=== PATIENT | female | born 1940 | race Caucasian/White ===

== ENCOUNTER 2019-01-12 06:27 | Day surgery (SDC) | payer OTHER, MEDICARE ==
[2019-01-07 09:34] LABS: Basophils % 0.4 % (0-1.3); Hematocrit 38.8 % (36.0-45.0); Lymphocytes % 17.5 % (15.3-44.8); MPV 8.5 fL (7.6-11.3); RBC Red Blood Cell Count 4.21 M/uL (3.86-4.86)
[2019-01-07 09:39] LABS: Protime INR 0.96
[2019-01-07 09:51] LABS: Potassium 4.1 mmol/L (3.5-5.1)
--- OUTSIDE RECORDS SUMMARY | 2019-01-12 06:29 | XMS REPORT | Clinical Summary ---
:1940 Author Organization [facility] Address [address] [place] [address] Care Team Providers Name Role Phone Yoav Bonilla MD Primary Care Provider Allergies No Known Allergies Medications Medication Sig Dispensed Refills Start Date End Date Status DEXILANT 60 mg capsule 0 04/08/2017 Active PREMARIN 0.625 mg/gram 0 05/08/2017 Active vaginal cream gabapentin (NEURONTIN) 300 TK 1 C PO QID 0 03/10/2017 Active mg capsule levothyroxine (SYNTHROID, 0 05/19/2017 Active LEVOXYL) 50 mcg tablet omeprazole (PriLOSEC) 40 0 05/08/2017 Active MG capsule oxybutynin (DITROPAN) 5 MG 0 05/08/2017 Active tablet raloxifene (EVISTA) 60 mg 0 03/03/2017 Active tablet simvastatin (ZOCOR) 20 MG 0 03/03/2017 Active tablet Active Problems Not on file Family History Relation Name Status Comments Brother Father Mother Social History Tobacco Use Types Packs/Day Years Used Date Never Smoker Smokeless Tobacco: Never Used Alcohol Use Drinks/Week oz/Week Comments No Sex Assigned at Date Recorded Not on file Job Start Date Occupation Industry Not on file Not on file Not on file Travel History Travel Start Travel End No recent travel history available. 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
[2019-01-12] MEDS ORDERED: LIDOCAINE 1% MPF 30 ML VIAL ONE (06:48)
[2019-01-12] MEDS ORDERED: HEPA 1000U/500MLS 1,000 UNIT/500 ML BAG IV ONE (06:48)
[2019-01-12] MEDS ORDERED: NA CHLORIDE 0.9% 500 ML ONE (06:55)
[2019-01-12] MEDS ORDERED: FENTANYL CITR 100 MCG/2 ML ONE (07:23)
[2019-01-12] MEDS ORDERED: MIDAZOLAM HCL 2 MG/2 ML INJ ONE (07:23)
[2019-01-12] MEDS ORDERED: NA CHLORIDE 0.9% 0 ML ONE (07:23)
[2019-01-12] MEDS ORDERED: ATROPINE SULF 1 MG/10 ML SYR IV ONE (07:23)
[2019-01-12 09:34] VITALS: O2SAT 98
[2019-01-12 10:07] VITALS: BP 170/63; TEMP 98.1
--- NOTE | 2019-01-12 14:06 | OP ---
Surgeon: Julio Cesar Morrell MD Coin Machine Collector Supervisor: Chente Mejia. She was admitted to my service as an outpatient for a heart catheterization. Procedures: Left heart catheterization, selective coronary arteriogram. Indication: Chest pain and abnormal stress test. Patient is a 78-year-old woman with multiple cardiac risk factors, is a patient of Dr. Bonilla, had a p ositive stress test, scheduled for a heart catheterization today as an outpatient. She was prepped a nd draped in the routine sterile fashion. Given Versed for IV sedation. 6-Setswana sheath introduced in the right common femoral artery successfully. Angiography there was normal. Angio-Seal was used to close the case. Bailey catheter 6-Setswana left and right were used respectively to cannulate the left main and the right main. She had a normal right coronary artery. She was right dominant. Her circumflex was normal. Her LAD showed normal LAD itself, but she had a 70% stenosis in the first sherman gonal, 20% left main disease and 50% in the second diagonal. There were no complications. Blood Loss: 5 cc. Final Diagnosis: Moderate coronary artery disease. Plan: Increase her Zocor from 40 mg to 80 mg daily. Anesthesia: Total conscious sedation was 30 minutes. [place]ALYN Voice ID: [id number] Report ID: [id number]
== END 2019-01-12 10:03 | disposition home or self-care (01) ==
LOC: CCL 06:27
DX: I25.10 Atherosclerotic heart disease of native coronary artery without angina pectoris (principal); E78.5 Hyperlipidemia, unspecified; K21.9 Gastro-esophageal reflux disease without esophagitis; E03.9 Hypothyroidism, unspecified; G62.9 Polyneuropathy, unspecified
CPT/HCPCS: 85025; 80048; 36415; 85610; 85730; 93454; C1893; C1760; J2250; J3010; J0583

== ENCOUNTER 2022-04-13 13:49 | Emergency (ER) | payer OTHER, MEDICARE ==
--- OUTSIDE RECORDS SUMMARY | 2022-04-13 13:52 | XMS REPORT | Continuity of Care Document ---
:1940 Author Organization [facility] t Address [address] [place] [address] Care Team Providers Name Role Phone Yoav Bonilla MD Primary Care Physician NEELAM DUMONT Attending Clinician Unavailable NEELAM DUMONT Attending Clinician Unavailable NELLA QUEEN Attending Clinician Unavailable Nella Queen MD Attending Clinician Doctor Unassigned, [place] Attending Clinician Unavailable Payers Payer Name Policy Type Policy Number Effective Date Expiration Date S yahir MEDICARE PART A \T\ [id number] 2004 B 00:00:00 [facility] [id number] 2013 MEDICARE SUPPLEMENT 00:00:00 Problems Condition Condition Condition Status Onset Resolution Last Treating Co mments Source Name Details Category Date Date Treatment Clinician Date 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 0-22 ity of 00:00: [place] 00 Medical Branch Dyspareuni Dyspareuni Disease Active U nivers a a 7-18 ity of 00:00: [place] 00 Medical Branch 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 00:00: [place] atrophicus atrophicus 00 Me dical of the of the Branch vulva 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 3-03 ity of 00:00: [place] 00 Medical Branch Allergies, Adverse Reactions, Alerts Allergy Allergy Status Severity Reaction(s) Onset Inactive Treating Comm ents Source Name Type Date Date Clinician Zoledron Propensi Active Other - See U nivers ic ty to comments 11-04 ity of Acid-Man adverse 00:00: [place] [facility] [place] ZOLEDRON DRUG Active Other-Cmnt Univ ers IC 11-04 ity of ACID-MAN 00:00: [facility] 00 Medical [facility] Family History Family Member Diagnosis Comments Start Date Stop Date Source Natural brother [facility] Natural father [facility] mother [facility] Social History Social Habit Start Date Stop Date Quantity Comments Source Exposure to Not sure University SARS-CoV-2 [facility] (event) [place] Alcohol intake 2017-06-05 2017-06-05 [facility] 00:00:00 00:00:00 non-drinker of alcohol (finding) Tobacco use and 2017-06-05 2017-06-05 Smokeless tobacco [facility] exposure 00:00:00 00:00:00 non-user History of 1960-01-04 Cigarette Smoker Univers ty of tobacco use 00:00:00 [facility] Sex Assigned At [birth year] [facility] 00:00:00 00:00:00 Smoking Status Start Date Stop Date Source Never smoked tobacco [facility] Former smoker 2010-07-05 00:00:00 2010-07-05 00:00:00 Universi [facility] Medications Ordered Filled Start Stop Current Ordering Indication Dosage Frequency Signature Comments Components Source Medication Medication Date Date Medication? Clinician (SIG) Name Name conjugated Yes [id number] .5g Insert 0.5 Univers estrogens 1-13 g into ity of (PREMARIN) 00:00: vagina 2 Brigido as 0.625 00 (two) Medical mg/gram times per Branch vaginal week. cream conjugated Yes [id number] .5g Insert 0.5 Univers estrogens 1-13 g into ity of (PREMARIN) 00:00: vagina 2 Brig[place] as 0.625 00 (two) Medical mg/gram times per Branch vaginal week. cream conjugated Yes [id number] .5g Insert 0.5 Univers estrogens 1-13 g into ity of (PREMARIN) 00:00: vagina 2 Brig[place] as 0.625 00 (two) Medical mg/gram times per Branch vaginal week. cream conjugated Yes [id number] .5g Insert 0.5 Univers estrogens 1-13 g into ity of (PREMARIN) 00:00: vagina 2 [place] as 0.625 00 (two) Medical mg/gram times per Branch vaginal week. cream clobetasoL Yes [id number] Apply to Univers 0.05 % 1-11 area(s) ity of ointment 00:00: weekly. [place] [facility] clobetasoL Yes [id number] Apply to Univers 0.05 % 1-11 area(s) ity of ointment 00:00: weekly. [place] [facility] clobetasoL Yes [id number] Apply to Univers 0.05 % 1-11 area(s) ity of ointment 00:00: weekly. [place] [facility] clobetasoL Yes [id number] Apply to Univers 0.05 % 1-11 area(s) ity of ointment 00:00: weekly. [place] 00 Medical Branch MULTIVITAMI Yes Take by Uni vers NS W/C ORAL 1-11 mouth. ity of 13:17: [place] [address] Medical Branch [place]-3-DHA Yes Take by Uni vers -EPA-Fish 1-11 mouth ity of Oil (FISH 13:17: daily. [place] OIL) 1,000 53 Medical (120-180) Branch mg Cap CALCIUM Yes 1200mg Take 1,200 Un lalo CITRATE/VIT 1-11 mg by ity of BUSTOS D3 13:17: mouth [place] (CITRACAL + 53 daily. Medica l D ORAL) Branch biotin Yes 1{each} Take 1 Univer s 1,000 mcg 1-11 Each by ity of Chew 13:17: mouth [place] 53 daily. Medical Branch propylene Yes Place in Univ ers glycol 1-11 each eye. ity of (SYSTANE 13:17: [place] COMPLETE) 53 Medical 0.6 % Drop Branch famotidine Yes 40mg Take 40 mg U nivers 40 mg 1-11 by mouth ity of tablet 13:17: daily. [place] [address] Medical Branch MULTIVITAMI Yes Take by Uni vers NS W/C ORAL 1-11 mouth. ity of 13:17: [place] [address] Medical Branch [place]-3-DHA Yes Take by Uni vers -EPA-Fish 1-11 mouth ity of Oil (FISH 13:17: daily. [place] OIL) 1,000 53 Medical (120-180) Branch mg Cap CALCIUM 0 Yes 1200mg Take 1,200 Un lalo CITRATE/VIT 1-11 mg by ity of BUSTOS D3 13:17: mouth [place] (CITRACAL + 53 daily. Medica l D ORAL) Branch biotin 0 Yes 1{each} Take 1 Univer s 1,000 mcg 1-11 Each by ity of Chew 13:17: mouth [place] 53 daily. Medical Branch propylene [address] in Univ ers glycol 1-11 each eye. ity of (SYSTANE 13:17: [place] COMPLETE) 53 Medical 0.6 % Drop Branch famotidine 0 Yes 40mg Take 40 mg U nivers 40 mg 1-11 by mouth ity of tablet 13:17: daily. [place] [address] Medical Branch MULTIVITAMI Yes Take by Uni vers NS W/C ORAL 1-11 mouth. ity of 13:17: [place] [address] Medical Branch [place]-3-DHA Yes Take by Uni vers -EPA-Fish -11 mouth ity of Oil (FISH 13:17: daily. [place] OIL) 1,000 53 Medical (120-180) Branch mg Cap CALCIUM 0 Yes 1200mg Take 1,200 Un lalo CITRATE/VIT 1-11 mg by ity of BUSTOS D3 13:17: mouth [place] (CITRACAL + 53 daily. Medica l D ORAL) Branch biotin 0 Yes 1{each} Take 1 Univer s 1,000 mcg 1-11 Each by ity of Chew 13:17: mouth [place] 53 daily. Medical Branch propylene [address] in Univ ers glycol 1-11 each eye. ity of (SYSTANE 13:17: [place] COMPLETE) 53 Medical 0.6 % Drop Branch famotidine 0 Yes 40mg Take 40 mg U nivers 40 mg 1-11 by mouth ity of tablet 13:17: daily. [place] 53 Medical Branch MULTIVITAMI 0 Yes Take by Uni vers NS W/C ORAL 1-11 mouth. ity of 13:17: [place] 53 Medical Branch [place]-3-DHA Yes Take by Uni vers -EPA-Fish 1-11 mouth ity of Oil (FISH 13:17: daily. [place] OIL) 1,000 53 Medical (120-180) Branch mg Cap CALCIUM Yes 1200mg Take 1,200 Un lalo CITRATE/VIT 1-11 mg by ity of BUSTOS D3 13:17: mouth [place] (CITRACAL + 53 daily. Medica l D ORAL) Branch biotin Yes 1{each} Take 1 Univer s 1,000 mcg 1-11 Each by ity of Chew 13:17: mouth [place] 53 daily. Medical Branch propylene Yes Place in Univ ers glycol 1-11 each eye. ity of (SYSTANE 13:17: [place] COMPLETE) 53 Medical 0.6 % Drop Branch famotidine Yes 40mg Take 40 mg U nivers 40 mg -11 by mouth ity of tablet 13:17: daily. [place] 53 Medical Branch PROLIA 60 Yes Univers mg/mL 1-01 ity of injection 00:00: [facility] PROLIA 60 0 Yes Univers mg/mL -01 ity of injection 00:00: [place] [facility] PROLIA 60 0 Yes Univers mg/mL -01 ity of injection 00:00: [place] [facility] PROLIA 60 0 Yes Univers mg/mL 1-01 ity of injection 00:00: [facility] simvastatin 2020- Yes TK 1 T PO U nivers 80 mg 1-10 QD ity of tablet 00:00: [facility] simvastatin 2020- Yes TK 1 T PO U nivers 80 mg 1-10 QD ity of tablet 00:00: [place] [facility] simvastatin 2020- Yes TK 1 T PO U nivers 80 mg 1-10 QD ity of tablet 00:00: [place] [facility] simvastatin 2020- Yes TK 1 T PO U nivers 80 mg 1-10 QD ity of tablet 00:00: Medical Branch levothyroxi Yes 50ug Take 50 Uni vers ne 50 mcg 1-15 mcg by ity of tablet 00:00: mouth 00 daily. Medical Branch levothyroxi Yes 50ug Take 50 Uni vers ne 50 mcg 1-15 mcg by ity of tablet 00:00: mouth [place] 00 daily. Medical Branch levothyroxi Yes Method i ne 1-15 st (SYNTHROID, 00:00: Hospit a LEVOXYL) 50 00 l mcg tablet levothyroxi Yes Method i ne 1-15 st (SYNTHROID, 00:00: Hospit a LEVOXYL) 50 00 l mcg tablet levothyroxi Yes 50ug Take 50 Uni vers ne 50 mcg 1-15 mcg by ity of tablet 00:00: mouth [place] 00 daily. Medical Branch levothyroxi Yes 50ug Take 50 Uni vers ne 50 mcg 1-15 mcg by ity of tablet 00:00: mouth [place] 00 daily. Medical Branch PREMARIN Yes [facility] 0.625 1-04 st mg/gram 00:00: Hospita vaginal 00 l cream omeprazole Yes [facility] (PriLOSEC) 1-04 st 40 MG 00:00: Hospita capsule 00 l oxybutynin Yes [facility] (DITROPAN) 1-04 st 5 MG tablet 00:00: Hospit a 00 l omeprazole Yes [facility] (PriLOSEC) 1-04 st 40 MG 00:00: Hospita capsule 00 l oxybutynin 0 Yes [facility] (DITROPAN) 1-04 st 5 MG tablet 00:00: Hospit a 00 l PREMARIN 0 Yes [facility] 0.625 1-04 st mg/gram 00:00: Hospita vaginal 00 l cream DEXILANT 60 2016-05 Yes Method i mg capsule 2-05 st 00:00: Hospita 00 l DEXILANT 60 2016-05 Yes Method i mg capsule 2-05 st 00:00: Hospita 00 l gabapentin 2016-05 Yes TK 1 C PO Me thodi (NEURONTIN) 1-[address] 300 mg 00:00: Hospita capsule 00 l gabapentin 2016-05 Yes 300mg Take 300 Un lalo 300 mg 1-06 mg by ity of capsule 00:00: mouth 3 00 (three) Medical times Branch daily. gabapentin 2016-05 Yes 300mg Take 300 Un lalo 300 mg 1-06 mg by ity of capsule 00:00: mouth 3 00 (three) Medical times Branch daily. gabapentin 2016-05 Yes 300mg Take 300 Un lalo 300 mg 1-06 mg by ity of capsule 00:00: mouth 3 [place] (three) Medical times Branch daily. gabapentin 2016-05 Yes 300mg Take 300 Un lalo 300 mg 1-06 mg by ity of capsule 00:00: mouth 3 [place] 00 (three) Medical times Branch daily. gabapentin 2016-05 Yes TK 1 C PO Me thodi (NEURONTIN) 1-[address] 300 mg 00:00: Hospita capsule 00 l raloxifene 2016-05 Yes Methodi (EVISTA) 60 0-30 st mg tablet 00:00: Hospita 00 l simvastatin 2016-05 Yes Method i (ZOCOR) 20 0-30 st MG tablet 00:00: Hospita 00 l raloxifene 2016-05 Yes [facility] (EVISTA) 60 0-30 st mg tablet 00:00: Hospita 00 l simvastatin 2016-05 Yes Method i (ZOCOR) 20 0-30 st MG tablet 00:00: Hospita 00 l Immunizations Ordered Filled Immunization Date Status Comments [facility] e Immunization Name Name SARS-COV-2 COVID-19 2021-02-21 Completed Unive rsity of MODERNA VACCINE 00:00:00 [facility] Influenza High Dose 2021-02-21 Completed Unive rsity of 00:00:00 [facility] SARS-COV-2 COVID-19 2021-02-21 Completed Unive rsity of MODERNA VACCINE 00:00:00 [facility] Influenza High Dose 2021-02-21 Completed Unive rsity of 00:00:00 [facility] SARS-COV-2 COVID-19 2021-02-21 Completed Unive rsity of MODERNA VACCINE 00:00:00 [facility] Influenza High Dose 2021-02-21 Completed Unive rsity of 00:00:00 [facility] SARS-COV-2 COVID-19 2021-02-21 Completed Unive rsity of MODERNA VACCINE 00:00:00 [facility] Influenza High Dose 2021-02-21 Completed Unive rsity of 00:00:00 [facility] SARS-COV-2 COVID-19 2020-08-22 Completed Unive rsity of MODERNA VACCINE 00:00:00 [facility] SARS-COV-2 COVID-19 2020-08-22 Completed Unive rsity of MODERNA VACCINE 00:00:00 [facility] SARS-COV-2 COVID-19 2020-08-22 Completed Unive rsity of MODERNA VACCINE 00:00:00 [facility] SARS-COV-2 COVID-19 2020-08-22 Completed Unive rsity of MODERNA VACCINE 00:00:00 [facility] SARS-COV-2 COVID-19 2020-07-19 Completed Unive rsity of MODERNA VACCINE 00:00:00 [facility] SARS-COV-2 COVID-19 2020-07-19 Completed Unive rsity of MODERNA VACCINE 00:00:00 [facility] SARS-COV-2 COVID-19 2020-07-19 Completed Unive rsity of MODERNA VACCINE 00:00:00 [facility] SARS-COV-2 COVID-19 2020-07-19 Completed Unive rsity of MODERNA VACCINE 00:00:00 [facility] Influenza Virus 2020-01-10 Completed Universit y of Vaccine 00:00:00 [facility] Influenza Virus 2020-01-10 Completed Universit y of Vaccine 00:00:00 [facility] Influenza Virus 2020-01-10 Completed Universit y of Vaccine 00:00:00 [facility] Influenza Virus 2020-01-10 Completed Universit y of Vaccine 00:00:00 [facility] Vital Signs Vital Name Observation Time Observation Value Comments Source Systolic blood 2021-06-18 19:43:00 168 mm[Hg] Univer sity of pressure [facility] Diastolic blood 2021-06-18 19:43:00 76 mm[Hg] Unive rsity of pressure [facility] Heart rate 2021-06-18 19:42:00 93 /min [facility] Body temperature 2021-06-18 19:42:00 36.67 Lashanda Univ ersity [facility] Respiratory rate 2021-06-18 19:42:00 18 /min Univ ersity [facility] Body height 2021-06-18 19:42:00 167.6 cm [facility] Body weight 2021-06-18 19:42:00 62.279 kg [facility] BMI 2021-06-18 19:42:00 22.16 kg/m2 [facility] Procedures Procedure Date / Time Performed Performing Clinician Sour e EXTERNAL PROVIDER 2021-10-11 05:01:00 Doctor Unassigned, No Univ [facility] RECORDS Name Medical Branch EXTERNAL MAMMOGRAM 2021-10-11 00:00:00 Nella Queen [facility] Plan of Care Planned Activity Planned Date Details Comments Source Future Scheduled 2022-03-09 HEPATITIS B VACCINES [facility] Test 23:28:34 (1 of 3 - 3-dose series) [code = HEPATITIS B VACCINES (1 of 3 - 3-dose series)] Future Scheduled 2022-03-09 COVID-19 VACCINE (#1) [facility] Hospital Test 23:28:34 [code = COVID-19 VACCINE (#1)] Future Scheduled 2022-03-09 SHINGLES VACCINES (1 [facility] Test 23:28:34 of 2) [code = SHINGLES VACCINES (1 of 2)] Future Scheduled 2022-03-09 65+ PNEUMOCOCCAL Methodi Hospital Test 23:28:34 VACCINE (1 - PCV) [code = 65+ PNEUMOCOCCAL VACCINE (1 - PCV)] Future Scheduled 2022-03-09 INFLUENZA VACCINE Method is Hospital Test 23:28:34 [code = INFLUENZA VACCINE] Future Scheduled 2021-04-19 COVID-19 VACCINE (1) [facility] Test 03:07:09 [code = COVID-19 VACCINE (1)] Future Scheduled 2021-04-19 SHINGLES [facility]ACCINES (#1) [facility] Test 03:07:09 [code = SHINGLES VACCINES (#1)] Future Scheduled 2021-04-19 65+ PNEUMOCOCCAL [facility] Test 03:07:09 VACCINE (1 of 1 - PPSV23) [code = 65+ PNEUMOCOCCAL VACCINE (1 of 1 - PPSV23)] Future Scheduled 2021-04-19 INFLUENZA VACCINE Method is Hospital Test 03:07:09 [code = INFLUENZA VACCINE] Encounters Start End Encounter Admission Attending Care Care Encounter Source Date/Time Date/Time Type Type Clinicians Facility Department ID 2022-05-21 2022-05-21 Outpatient R NEELAM DUMONT [facility] B [id number] Univers 10:30:00 10:30:00 NEELAM DUMONT ity [facility] 2022-05-21 2022-05-21 Outpatient R NELLA QUEEN [facility] [id number] Univers 10:00:00 10:00:00 ity of [facility] 2022-05-21 2022-05-21 Outpatient R NELLA QUEEN [facility] [id number] Univers 10:00:00 10:00:00 ity [facility] 2022-05-21 2022-05-21 Outpatient R NELLA QUEEN [facility] [id number] Univers 10:00:00 10:00:00 ity [facility] 2021-10-25 2021-10-25 Abstract Nella Queen [facility] [id number] Univers 00:00:00 00:00:00 ASHLEY [id number] it y of [id number] [place] [id number] [address] 2021-10-25 2021-10-25 Telephone Nella Queen [facility] [id number] Univers 00:00:00 00:00:00 ASHLEY [id number] it y [id number] [id number] [address] 2021-10-11 2021-10-11 Orders Doctor BIJAL [id number] Univers 00:00:00 00:00:00 Only Unassigned, LISA [id number] [place] [facility] [id number] [place] [id number] [place] [address] Branch 2021-06-18 2021-06-18 Outpatient R NELLA QUEEN [facility] [id number] Univers 13:30:00 13:53:26 ity [facility] 2021-06-18 2021-06-18 Office Nella Queen [id number] Univers 13:30:00 13:53:26 Visit ASHLEY [id number] it y [id number] [id number] [address] 2021-06-01 2021-06-01 Outpatient R NELLA QUEEN [facility] [id number] Univers 13:30:00 14:41:57 ity of [facility] 2021-06-01 2021-06-01 Office Nella Queen [facility] [id number] Univers 13:30:00 14:00:00 [facility] [id number] [facility] [id number] [id number] Sc dical [address] 2021-06-01 2021-06-01 Outpatient R NELLA QUEEN [facility] [id number] Univers 13:30:00 13:30:00 ity of [facility] 2021-06-01 2021-06-01 Orders Doctor BIJAL [id number] Univers 00:00:00 00:00:00 Only Unassigned, LISA [id number] ity of [place] [facility] [id number] [place] [id number] [address] 2021-05-15 2021-05-15 Office Nella Queen [facility] [id number] Univers 10:00:00 10:44:33 Visit ASHLEY [id number] it y [id number] [id number] [address] 2021-05-15 2021-05-15 Outpatient R NELLA QUEEN [facility] [id number] Univers 10:00:00 10:44:33 ity [facility] 2021-05-08 2021-05-08 Orders Doctor BIJAL [id number] Univers 00:00:00 00:00:00 Only Unassigned, LISA [id number] ity of [place] [facility] [id number] [place] [id number] [address] 2020-05-15 2020-05-15 NELLA Colon [facility] [id number] [facility] 13:00:00 13:00:00 [facility] Results This patient has no known results.
--- NOTE | 2022-04-13 15:36 | RAD REPORT ---
EXAM DESCRIPTION: CT - Head Brain Wo Cont - 04/13/2022 3:23 pm CLINICAL HISTORY: headache, blurry vision, diziness, high BP COMPARISON: None TECHNIQUE: All CT scans are performed using dose optimization technique as appropriate and may inclu de automated exposure control or mA/KV adjustment according to patient size. FINDINGS: No intracranial hemorrhage, hydrocephalus or extra-axial fluid collection.No areas of brai n edema or evidence of midline shift. Mild to moderate chronic small vessel ischemic changes. The paranasal sinuses and mastoids are clear. The calvarium is intact. IMPRESSION: No acute intracranial abnormality.
[2022-04-13 17:40] LABS: Absolute Lymphocytes (CBC) 0.7 K/uL (0.7-4.9); Hematocrit 37.7 % (36.0-45.0); Lymphocytes % 11.7 % (15.3-44.8); MCV 90.7 fL (80-100); MPV 7.6 fL (7.6-11.3); RBC Red Blood Cell Count 4.16 M/uL (3.86-4.86)
[2022-04-13 18:01] LABS: Albumin 3.8 g/dL (3.4-5.0); Bilirubin Total 1.2 mg/dL (0.2-1.0); Potassium 3.9 mmol/L (3.5-5.1); Protein, Total 7.3 g/dL (6.4-8.2); Troponin High Sensitivity 13.5 pg/mL (<58.9)
--- NOTE | 2022-04-13 18:08 | ER ---
Nurse's Notes [facility] Name: Cara Lim Age: 81 yrs Sex: Female : 1940 Arrival Date: 04/13/2022 Time: 13:51 Bed 16 Private MD: Yoav Bonilla V Diagnosis: Elevated blood-pressure reading, without diagnosis of hypertension Presentation: 04/13 15:04 Chief complaint: Chief complaint: Patient states: headache, blurry vision, dizziness iw started this morning, and noticed her BP was high. 15:05 Coronavirus screen: At this time, the client does not indicate any symptoms associated iw with coronavirus-19. Ebola Screen: Patient negative for fever greater than or equal to 101.5 degrees Fahrenheit, and additional compatible Ebola Virus Disease symptoms Patient denies exposure to infectious person. Patient denies travel to an Ebola-affected area in the 21 days before illness onset. No symptoms or risks identified at this time. Initial Sepsis Screen: Does the patient meet any 2 criteria? No. Patient's initial sepsis screen is negative. Does the patient have a suspected source of infection? No. Patient's initial sepsis screen is negative. Risk Assessment: Do you want to hurt yourself or someone else? Patient reports no desire to harm self or others. Onset of symptoms was April 13, 2022. 15:05 Method Of Arrival: Wheelchair iw 15:05 Acuity: PRINCESS 2 iw Historical: - Allergies: 18:21 No Known Allergies; eh3 - Immunization history:: Adult Immunizations up to date. - Family history:: not pertinent. - Social history:: Smoking status: Patient denies any tobacco usage or history of. Screenin:30 Abuse screen: Denies threats or abuse. Denies injuries from another. Nutritional eh3 screening: No deficits noted. Tuberculosis screening: No symptoms or risk factors identified. Fall Risk None identified. Assessment: 16:30 General: Appears in no apparent distress. comfortable, Behavior is calm, cooperative, eh3 appropriate for age. Pain: Denies pain. Neuro: Level of Consciousness is awake, alert, obeys commands, Oriented to person, place, time, situation. Cardiovascular: Capillary refill < 3 seconds Patient's skin is warm and dry. Respiratory: Airway is patent Respiratory effort is even, unlabored, Respiratory pattern is regular, symmetrical. GI: No signs and/or symptoms were reported involving the gastrointestinal system. Abdomen is flat, non-distended. : No signs and/or symptoms were reported regarding the genitourinary system. EENT: No signs and/or symptoms were reported regarding the EENT system. Derm: No signs and/or symptoms reported regarding the dermatologic system. Musculoskeletal: No signs and/or symptoms reported regarding the musculoskeletal system. Circulation, motion, and sensation intact. Range of motion: intact in all extremities. 17:30 Reassessment: Patient appears in no apparent distress at this time. Patient and/or eh3 family updated on plan of care and expected duration. Pain level reassessed. Patient is alert, oriented x 3, equal unlabored respirations, skin warm/dry/pink. Vital Signs: 14:54 BP 202 / 79 RA; Pulse 91; Resp 16; Temp 97.9(O); Pulse Ox 98% on R/A; Weight 61.23 kg; zm Height 5 ft. 6 in. (167.64 cm); Pain 0/10; 16:30 BP 162 / 85 RA; Pulse 79; Resp 14; Pulse Ox 99% on R/A; eh3 16:30 BP 199 / 71 LA; Pulse 79; eh3 17:30 BP 200 / 69 LA; Pulse 75; Resp 12; Pulse Ox 100% on R/A; eh3 14:54 Body Mass Index 21.79 (61.23 kg, 167.64 cm) ED Course: 13:51 Patient arrived in ED. am2 13:51 Yoav Bonilla MD is Private Physician. am2 15:06 Triage completed. iw 15:25 CT Head Brain wo Cont In Process Unspecified. EDMS 15:45 Ricci Fernández MD is Attending Physician. rt 16:25 Eileen Rangel, DINA is Primary Nurse. eh3 16:30 Missed attempt(s): 22 gauge in left antecubital area. Bleeding controlled, band aid eh3 applied, catheter tip intact. 16:30 Patient has correct armband on for positive identification. Bed in low position. Call eh3 light in reach. Side rails up X2. Adult w/ patient. Client placed on continuous cardiac and pulse oximetry monitoring. NIBP monitoring applied. Door closed. Noise minimized. Warm blanket given. 16:30 Arm band placed on left wrist. eh3 17:00 Inserted saline lock: 22 gauge in right antecubital area, using aseptic technique. eh3 Blood collected. 18:22 No provider procedures requiring assistance completed. IV discontinued, intact, eh3 bleeding controlled, No redness/swelling at site. Pressure dressing applied. Administered Medications: 18:13 Drug: amLODIPine 10 mg Route: PO; eh3 18:21 Follow up: Response: Medication administered at discharge. eh3 Medication: 18:22 VIS not applicable for this client. 3 Outcome: 18:07 Discharge ordered by . rt 18:22 Discharged to home ambulatory, with family. eh3 18:22 Condition: stable 18:22 Discharge instructions given to patient, family, Instructed on discharge instructions, follow up and referral plans. medication usage, Demonstrated understanding of instructions, follow-up care, medications, Prescriptions given X 1. 18:23 Patient left the ED. 3 Signatures: Dispatcher [employer] EDMS Fara Holden RN RN iw Zoe Schrader Erin, RN RN 3 Frances Rivas Ryan, MD MD rt Corrections: (The following items were deleted from the chart) 15:06 15:04 Chief complaint: iw iw
--- NOTE | 2022-04-13 18:08 | EDPHYS ---
Physician Documentation [facility] Name: Cara Lim Age: 81 yrs Sex: Female : 1940 Arrival Date: 04/13/2022 Time: 13:51 Bed 16 Private MD: Yoav Bonilla V ED Physician Ricci Fernández HPI: 04/13 17:19 This 81 yrs old Female presents to ER via Wheelchair with complaints of High Blood rt Pressure. 17:19 The patient has elevated blood pressure and discovered this at home, with a home rt device. Onset: The symptoms/episode began/occurred today. Modifying factors: The symptoms are aggravated by nothing, The symptoms are alleviated by nothing. Associated signs and symptoms: Pertinent positives: blurred vision, Pertinent negatives: chest pain, dizziness, headache. Severity of symptoms: At its worst the blood pressure was 180's. Presents to the ED with hypertension at home. Patient states that she had a somewhat blurred vision, worse than baseline. The patient denies any chest pain, shortness of breath. There is note states that the patient may, however, she denies this to me. She states that her blood pressure was normal at her PCPs office last week, states that this is new for her. Denies other acute complaints at this time, symptoms are moderate severity, no other aggravating or alleviating factors.. Historical: - Allergies: 18:21 No Known Allergies; eh3 - Immunization history:: Adult Immunizations up to date. - Family history:: not pertinent. - Social history:: Smoking status: Patient denies any tobacco usage or history of. ROS: 17:19 Constitutional: Negative for fever, chills, and weight loss, ENT: Negative for injury, rt pain, and discharge, Neck: Negative for injury, pain, and swelling, Cardiovascular: Negative for chest pain, palpitations, and edema, Respiratory: Negative for shortness of breath, cough, wheezing, and pleuritic chest pain, Abdomen/GI: Negative for abdominal pain, nausea, vomiting, diarrhea, and constipation, Back: Negative for injury and pain, MS/Extremity: Negative for injury and deformity, Skin: Negative for injury, rash, and discoloration, Neuro: Negative for headache, weakness, numbness, tingling, and seizure, Psych: Negative for depression, anxiety, suicide ideation, homicidal ideation, and hallucinations. 17:19 Eyes: Positive for blurry vision, Negative for photophobia. Exam: 17:19 Constitutional: This is a well developed, well nourished patient who is awake, alert, rt and in no acute distress. Head/Face: Normocephalic, atraumatic. Eyes: Pupils equal round and reactive to light, extra-ocular motions intact. Lids and lashes normal. Conjunctiva and sclera are non-icteric and not injected. Cornea within normal limits. Periorbital areas with no swelling, redness, or edema. ENT: Nares patent. No nasal discharge, no septal abnormalities noted. Tympanic membranes are normal and external auditory canals are clear. Oropharynx with no redness, swelling, or masses, exudates, or evidence of obstruction, uvula midline. Mucous membranes moist. Neck: Trachea midline, no thyromegaly or masses palpated, and no cervical lymphadenopathy. Supple, full range of motion without nuchal rigidity, or vertebral point tenderness. No Meningismus. Chest/axilla: Normal chest wall appearance and motion. Nontender with no deformity. No lesions are appreciated. Cardiovascular: Regular rate and rhythm with a normal S1 and S2. No gallops, murmurs, or rubs. Normal PMI, no JVD. No pulse deficits. Respiratory: Lungs have equal breath sounds bilaterally, clear to auscultation and percussion. No rales, rhonchi or wheezes noted. No increased work of breathing, no retractions or nasal flaring. Abdomen/GI: Soft, non-tender, with normal bowel sounds. No distension or tympany. No guarding or rebound. No evidence of tenderness throughout. Skin: Warm, dry with normal turgor. Normal color with no rashes, no lesions, and no evidence of cellulitis. MS/ Extremity: Pulses equal, no cyanosis. Neurovascular intact. Full, normal range of motion. Neuro: Awake and alert, GCS 15, oriented to person, place, time, and situation. Cranial nerves II-XII grossly intact. Motor strength 5/5 in all extremities. Sensory grossly intact. Cerebellar exam normal. Normal gait. Psych: Awake, alert, with orientation to person, place and time. Behavior, mood, and affect are within normal limits. 17:19 ECG was reviewed by the Attending Physician. Vital Signs: 14:54 BP 202 / 79 RA; Pulse 91; Resp 16; Temp 97.9(O); Pulse Ox 98% on R/A; Weight 61.23 kg; zm Height 5 ft. 6 in. (167.64 cm); Pain 0/10; 16:30 BP 162 / 85 RA; Pulse 79; Resp 14; Pulse Ox 99% on R/A; eh3 16:30 BP 199 / 71 LA; Pulse 79; eh3 17:30 BP 200 / 69 LA; Pulse 75; Resp 12; Pulse Ox 100% on R/A; eh3 14:54 Body Mass Index 21.79 (61.23 kg, 167.64 cm) zm MDM: 15:46 Patient medically screened. rt 18:18 Differential diagnosis: hypertensive crisis, Malignant HTN, CVA, intracerebral rt hemorrhage. Data reviewed: vital signs, nurses notes, lab test result(s), EKG, radiologic studies. ED course: Presents to the ED with hypertension that is new for her. She is recently asymptomatic except for some mild blurred vision. She denies any chest pain to me. The patient has no acute ischemic changes on the EKG, negative troponin, unremarkable CT scan of the head as well as normal creatinine. It is noted the patient does have a blood pressure discrepancy between her 2 arms, right arm being less than the left arm. This is less consistent with a aortic dissection, and she has no symptoms that would be attributable to an acute aortic pathology. For this reason, do not believe that she requires angiography at this time. Patient is stable for outpatient care, will have blood pressure recheck in primary care's office, will prescribe medication should she have elevated blood pressures at home. Patient verbalized understanding is comfortable with this plan. Return precautions were discussed with patient.. 04/13 15:56 Order name: CBC with Diff; Complete Time: 17:47 rt 04/13 15:56 Order name: CMP; Complete Time: 18:02 rt 04/13 15:07 Order name: CT Head Brain wo Cont; Complete Time: 15:47 iw 04/13 15:56 Order name: Troponin High Sensitivity; Complete Time: 18:02 rt 04/13 15:56 Order name: EKG; Complete Time: 15:57 rt 04/13 15:56 Order name: EKG - Nurse/Tech; Complete Time: 16:59 rt EC:19 Rate is 75 beats/min. Rhythm is regular, Normal Sinus Rhythm with Right bundle branch rt block. QRS interval is normal. QT interval is normal. No ST changes noted. Interpreted by me. Administered Medications: 18:13 Drug: amLODIPine 10 mg Route: PO; eh3 18:21 Follow up: Response: Medication administered at discharge. 3 Disposition Summary: 04/13/22 18:07 Discharge Ordered Location: Home rt Problem: new rt Symptoms: have improved rt Condition: Stable rt Diagnosis - Elevated blood-pressure reading, without diagnosis of hypertension rt Followup: rt - With: Private Physician - When: 2 - 3 days - Reason: Discharge Instructions: - Discharge Summary Sheet rt - Hypertension, Adult, [id number] rt Forms: - Medication Reconciliation Form rt - Thank You Letter rt - Antibiotic Education rt - Prescription Opioid Use rt Prescriptions: - Norvasc 10 mg Oral Tablet - take 1 tablet by ORAL route once daily; 30 tablet; Refills: 0, Product rt Selection Permitted Signatures: Dispatcher [employer] Eileen Benavides RN RN 3 Ricci Fernández MD MD rt
[2022-04-13] MEDS ORDERED: AMLODIPINE 10 MG TAB ONE (18:13)
[2022-04-13 22:38] VITALS: TEMP 97.9
[2022-04-13 22:41] VITALS: BP 200/69; O2SAT 100
--- NOTE | 2022-04-15 15:00 | EKG ---
Test Date: 2022-04-13 Test Time: 16:53:02 Block Chopper Hand: ANDREW MEASUREMENT RESULTS: Intervals: Rate: 75 NE: 166 QRSD: 110 QT: 398 QTc: 444 Colona: P: 86 NE: 166 QRS: -21 T: 83 INTERPRETIVE STATEMENTS: Normal sinus rhythm Incomplete right bundle branch block Septal infarct, age undetermined Abnormal ECG Compared to ECG 10/18/1992 11:18:00 Incomplete right bundle-branch block now present Myocardial infarct finding now present Atrial premature complex(es) no longer present Electronically Signed On 04-15-22 14:56:11 [employer] by Wilmar Abel
== END 2022-04-13 18:23 | disposition home or self-care (01) ==
LOC: ER 13:49
DX: R03.0 Elevated blood-pressure reading, without diagnosis of hypertension (principal)
CPT/HCPCS: 36415; 70450; 80053; 84484; 85025; 93005; 99284

== ENCOUNTER 2023-11-04 10:18 | Emergency (ER) | payer OTHER, MEDICARE ==
[2023-11-04 11:29] LABS: Absolute Eosinophils 0.1 K/uL (0-0.5); Absolute Lymphocytes (CBC) 1.1 K/uL (0.7-4.9); Absolute Monocytes 0.6 K/uL (0.1-1.3); Absolute Neutrophil 5.7 K/uL (1.8-8.0); Basophils % 0.3 % (0-1.3); Eosinophils % 0.8 % (0-4.4); Hematocrit 37.9 % (36.0-45.0); Hemoglobin 12.7 g/dL (12.0-15.0); Lymphocytes % 14.2 % (15.3-44.8); MCH 30.6 pg (27.0-35.0); MCHC 33.5 g/dL (32.0-36.0); MCV 91.6 fL (80-100); MPV 7.1 fL (7.6-11.3); Neutrophils % 76.7 % (41.7-73.7); Nucleated Red Blood Cells % 0.2 % (0-0); Platelets 230 thou/uL (152-406); RBC Red Blood Cell Count 4.14 M/uL (3.86-4.86); Red Cell Distribution Width 13.4 % (12.1-15.2)
[2023-11-04 11:48] LABS: Albumin 3.7 g/dL (3.4-5.0); Albumin/Globulin Ratio 0.9 (1.1-1.8); Anion Gap 10.3 mEq/L (5.0-15.0); Bilirubin Direct 0.2 mg/dL (0-0.2); Bilirubin Indirect, Calculated 0.7 mg/dL (0.2-0.8); Bilirubin Total 0.9 mg/dL (0.2-1.0); Globulin 3.9 g/dL (2.3-3.5); Magnesium 2.4 mg/dL (1.6-2.4); Potassium 4.3 mEq/L (3.5-5.1); Protein, Total 7.6 g/dL (6.4-8.2); Troponin High Sensitivity 5.5 pg/mL (<58.9)
--- NOTE | 2023-11-04 11:59 | RAD REPORT ---
EXAM DESCRIPTION: RAD - Chest Single View - 11/04/2023 11:49 am CLINICAL HISTORY: COUGH COMPARISON: Chest Pa And Lat (2 Views) dated 12/11/2018 FINDINGS: Lines: None. Lungs: No evidence of edema or pneumonia. Pleural: No significant pleural effusions or pneumothorax. Cardiac: The heart size is within normal limits. Mediastinum: Within normal limits. Bones: No acute fractures. Other: None IMPRESSION: No acute cardiopulmonary disease.
--- NOTE | 2023-11-04 12:50 | ER ---
Nurse's Notes [facility] Name: Cara Lim Age: 82 yrs Sex: Female : 1940 Arrival Date: 11/04/2023 Time: 10:18 Bed 16 Private MD: Diagnosis: Viral illness Presentation: 11/03 10:38 Chief complaint: Patient states: she has had flu-like symptoms for the last week and ap3 hasn't really been feeling well since. patient reports increased weakness and fatigue, with intermittent chills and sweating during this time. Coronavirus screen: Client presents with at least one sign or symptom that may indicate coronavirus-19. Ebola Screen: No symptoms or risks identified at this time. Initial Sepsis Screen: Does the patient meet any 2 criteria? HR > 90 bpm. Does the patient have a suspected source of infection? No. Patient's initial sepsis screen is negative. Risk Assessment: Do you want to hurt yourself or someone else? Patient reports no desire to harm self or others. Onset of symptoms is unknown. 10:38 Method Of Arrival: Ambulatory ap3 10:38 Acuity: PRINCESS 3 ap3 Triage Assessment: 10:40 General: Appears in no apparent distress. Behavior is calm, cooperative, appropriate ap3 for age, Reports chills for feeling ill for fatigue for. Pain: Denies pain. Neuro: Level of Consciousness is awake, alert, obeys commands, Oriented to person, place, time, situation. Neuro: Reports weakness. Cardiovascular: Patient's skin is warm and dry. Respiratory: Reports cough that is Airway is patent Respiratory effort is even, unlabored, Respiratory pattern is regular, symmetrical. Historical: - Allergies: 10:40 No Known Allergies; ap3 - PMHx: 10:40 Hypertensive disorder; Hypothyroidism; ap3 - Immunization history:: Client reports receiving the 2nd dose of the Covid vaccine, Flu vaccine is up to date. - Infectious Disease History:: Denies. - Social history:: Smoking status: Patient denies any tobacco usage or history of. Screenin:42 Abuse screen: Denies threats or abuse. Nutritional screening: No deficits noted. ap3 Tuberculosis screening: No symptoms or risk factors identified. 11:00 [facility] ED Fall Risk Assessment (Adult) History of falling in the last 3 months, kj2 including since admission No falls in past 3 months (0 pts) Confusion or Disorientation No (0 pts) Intoxicated or Sedated No (0 pts) Impaired Gait Yes (1 pt) Mobility Assist Device Used Yes (1 pt) Altered Elimination No (0 pt) Score/Fall Risk Level 0 - 2 = Low Risk Oriented to surroundings, Maintained a safe environment, Hourly rounding (assess needs \T\ fall precautionary measures) done. Assessment: 10:53 General: Appears in no apparent distress. Pain: Denies pain. Neuro: No deficits noted. kj2 Level of Consciousness is awake, alert, obeys commands, Oriented to person, place, situation. Cardiovascular: Reports fatigue, Denies chest pain. Respiratory: Reports cough that is non-productive. 12:06 Reassessment: Patient appears in no apparent distress at this time. Patient and/or nj1 family updated on plan of care and expected duration. Pain level reassessed. Patient is alert, oriented x 3, equal unlabored respirations, skin warm/dry/pink. 13:00 Reassessment: Patient appears in no apparent distress at this time. Patient is alert, nj1 oriented x 3, equal unlabored respirations, skin warm/dry/pink. Awaiting on discharge transportation, family had gone to eat lunch. Vital Signs: 10:38 BP 174 / 77; Pulse 93; Resp 18; Temp 97.8; Pulse Ox 97% ; Weight 57.61 kg; Height 5 ft. ap3 6 in. ; 10:57 BP 174 / 77; Pulse 78; Resp 20; Pulse Ox 98% on R/A; kj2 12:06 BP 189 / 66; Pulse 70; Resp 15; Pulse Ox 100% ; nj1 13:20 BP 194 / 67; Pulse 62; Resp 22; Pulse Ox 96% on R/A; nj1 10:38 Body Mass Index 20.50 (57.61 kg, 167.64 cm) ap3 ED Course: 10:20 Patient arrived in ED. im 10:33 Alia Ferrer, DINA is Primary Nurse. nj1 10:40 Triage completed. ap3 10:40 Natalie Nuñez MD is Attending Physician. sp3 10:42 Arm band placed on right wrist. ap3 11:24 Initial lab(s) drawn, by me, sent to lab. EKG done, by ED staff. Inserted saline lock: aw1 20 gauge in left forearm, using aseptic technique. 11:25 Patient has correct armband on for positive identification. Bed in low position. Call aw1 light in reach. Side rails up X 1. Adult w/ patient. Door closed. Warm blanket given. 11:25 Basic Metabolic Panel Sent. aw1 11:25 CBC with Diff Sent. aw1 11:25 LFT's Sent. aw1 11:25 Magnesium Sent. aw1 11:25 NT PRO-BNP Sent. aw1 11:25 Troponin HS Sent. aw1 11:51 CXR XRAY In Process Unspecified. EDMS 13:40 Provided Education on: discharge instructions. kj2 13:40 No provider procedures requiring assistance completed. kj2 13:40 IV discontinued, intact, bleeding controlled, Pressure dressing applied. kj2 Administered Medications: No medications were administered Medication: 13:40 VIS not applicable for this client. kj2 Outcome: 12:49 Discharge ordered by . sp3 13:40 Discharged to home ambulatory, with family, kj2 13:40 Condition: stable 13:40 Discharge instructions given to patient, family, Instructed on discharge instructions, follow up and referral plans. Demonstrated understanding of instructions, follow-up care, 13:50 Patient left the ED. nj1 Signatures: Dispatcher [employer] EDMS Zoe Dockery, RN RN ap3 Natalie Nuñez MD MD sp3 Alia Ferrer, RN RN nj1 Kiesha Gant Alyssa aw1 Angela Price, RN RN kj2 Corrections: (The following items were deleted from the chart) 13:22 12:06 Pulse 70bpm; Resp 15bpm; Pulse Ox 100%; nj1 nj1
--- NOTE | 2023-11-04 12:50 | EDPHYS ---
Physician Documentation [facility] Name: Cara Lim Age: 82 yrs Sex: Female : 1940 Arrival Date: 11/04/2023 Time: 10:18 Bed 16 Private MD: ED Physician Natalie Nuñez HPI: 11/03 11:05 This 82 yrs old Female presents to ER via Ambulatory with complaints of Flu Symptoms, sp3 not feeling right. 11:06 82-year-old female with a history of hypertension, hypothyroidism presents with chief sp3 complaint "not feeling right", cough, body aches for 2 to 3 days. Patient denies fever but states that her thermometer was broken at home and did not get a chance to take it. No significant travel or sick contacts reported. She denies headache, neck pain, chest pain, shortness of breath abdominal pain, nausea, vomiting, diarrhea, syncope, near syncope, rash, or any other signs or symptoms on ROS at this time.. Historical: - Allergies: 10:40 No Known Allergies; ap3 - PMHx: 10:40 Hypertensive disorder; Hypothyroidism; ap3 - Immunization history:: Client reports receiving the 2nd dose of the Covid vaccine, Flu vaccine is up to date. - Infectious Disease History:: Denies. - Social history:: Smoking status: Patient denies any tobacco usage or history of. ROS: 11:07 Constitutional: Negative for fever, chills, and weight loss, Eyes: Negative for injury, sp3 pain, redness, and discharge, Neck: Negative for injury, pain, and swelling, Cardiovascular: Negative for chest pain, palpitations, and edema, Abdomen/GI: Negative for abdominal pain, nausea, vomiting, diarrhea, and constipation, Back: Negative for injury and pain, MS/Extremity: Negative for injury and deformity, Skin: Negative for injury, rash, and discoloration, Neuro: Negative for headache, weakness, numbness, tingling, and seizure, Psych: Negative for depression, anxiety, suicide ideation, homicidal ideation, and hallucinations, Allergy/Immunology: Negative for hives, rash, and allergies, Endocrine: Negative for neck swelling, polydipsia, polyuria, polyphagia, and marked weight changes, Hematologic/Lymphatic: Negative for swollen nodes, abnormal bleeding, and unusual bruising, Exam: 11:07 Constitutional: This is a well developed, well nourished patient who is awake, alert, sp3 and in no acute distress. Head/Face: Normocephalic, atraumatic. ENT: Nares patent. No nasal discharge, no septal abnormalities noted. External auditory canals are clear. Oropharynx with no redness, swelling, or masses, exudates, or evidence of obstruction, uvula midline. Mucous membranes moist. Neck: Trachea midline, no thyromegaly or masses palpated, and no cervical lymphadenopathy. Supple, full range of motion without nuchal rigidity, or vertebral point tenderness. No Meningismus. Chest/axilla: Normal chest wall appearance and motion. Nontender with no deformity. No lesions are appreciated. Cardiovascular: Regular rate and rhythm with a normal S1 and S2. No gallops, murmurs, or rubs. Normal PMI, no JVD. No pulse deficits. Respiratory: Lungs have equal breath sounds bilaterally, clear to auscultation and percussion. No rales, rhonchi or wheezes noted. No increased work of breathing, no retractions or nasal flaring. Abdomen/GI: Soft, non-tender, with normal bowel sounds. No distension or tympany. No guarding or rebound. No evidence of tenderness throughout. Back: No spinal tenderness. No costovertebral tenderness. Full range of motion. Skin: Warm, dry with normal turgor. Normal color with no rashes, no lesions, and no evidence of cellulitis. MS/ Extremity: Pulses equal, no cyanosis. Neurovascular intact. Full, normal range of motion. Neuro: Awake and alert, GCS 15, oriented to person, place, time, and situation. Cranial nerves II-XII grossly intact. Motor strength 5/5 in all extremities. Sensory grossly intact. Cerebellar exam normal. Normal gait. Psych: Awake, alert, with orientation to person, place and time. Behavior, mood, and affect are within normal limits. 11:51 ECG was reviewed by the Attending Physician. EKG demonstrates normal sinus rhythm at 70 sp3 bpm with normal intervals, leftward axis nonspecific ST's ST changes without evidence of acute ischemia. Vital Signs: 10:38 BP 174 / 77; Pulse 93; Resp 18; Temp 97.8; Pulse Ox 97% ; Weight 57.61 kg; Height 5 ft. ap3 6 in. ; 10:57 BP 174 / 77; Pulse 78; Resp 20; Pulse Ox 98% on R/A; kj2 12:06 BP 189 / 66; Pulse 70; Resp 15; Pulse Ox 100% ; nj1 13:20 BP 194 / 67; Pulse 62; Resp 22; Pulse Ox 96% on R/A; nj1 10:38 Body Mass Index 20.50 (57.61 kg, 167.64 cm) ap3 MDM: 10:50 Patient medically screened. sp3 11:07 Data reviewed: vital signs, nurses notes, lab test result(s), EKG, radiologic studies. sp3 ED course: 82-year-old female with hypertension now presents with vague symptoms including cough and not feeling well. Given her age and comorbidities, differential diagnosis includes influenza, COVID-19, other viral illness, pneumonia and to lesser degree, CAD/ACS, CHF, pneumonia or other related pathology. Workup will include EKG, chest x-ray, swabs, lab work including troponin and BNP and general supportive care. Disposition pending workup and patient course.. 12:48 ED course: Full workup negative including swabs. BNP at 541. Clinically patient very sp3 stable and in no acute distress with normal vital signs. Will safely discharge patient home with follow-up with Dr. Bonilla with diagnosis of viral illness.. 11/03 10:50 Order name: Strep sp3 11/03 10:50 Order name: Flu; Complete Time: 12:04 sp3 11/03 10:59 Order name: Basic Metabolic Panel; Complete Time: 12:04 sp3 11/03 10:59 Order name: CBC with Diff; Complete Time: 12:04 sp3 11/03 10:59 Order name: LFT's; Complete Time: 12:04 sp3 11/03 10:59 Order name: Magnesium; Complete Time: 12:04 sp3 11/03 10:59 Order name: NT PRO-BNP; Complete Time: 12:04 sp3 11/03 10:59 Order name: Troponin HS; Complete Time: 12:04 sp3 11/03 11:28 Order name: SARS-COV-2 RT PCR; Complete Time: 12:44 EDMS 11/03 11:51 Order name: Throat Culture EDUT 11/03 10:50 Order name: CXR XRAY; Complete Time: 12:04 sp3 11/03 10:59 Order name: EKG; Complete Time: 11:00 sp3 11/03 10:59 Order name: Cardiac monitoring; Complete Time: 11:05 sp3 11/03 10:59 Order name: EKG - Nurse/Tech; Complete Time: 11:25 sp3 11/03 10:59 Order name: IV Saline Lock; Complete Time: 11:25 sp3 11/03 10:59 Order name: Labs collected and sent; Complete Time: 11:25 sp3 11/03 10:59 Order name: O2 Sat Monitoring; Complete Time: 11:06 sp3 Administered Medications: No medications were administered Disposition Summary: 11/04/23 12:49 Discharge Ordered Notes: Location: Home sp3 Condition: Stable sp3 Diagnosis - Viral illness sp3 Followup: sp3 - With: Private Physician - When: Upon discharge from the Emergency Department - Reason: Continuance of care Discharge Instructions: - Discharge Summary Sheet sp3 - Viral Illness, Adult sp3 Forms: - Medication Reconciliation Form sp3 - Antibiotic Education sp3 - Prescription Opioid Use sp3 - Patient Portal Instructions sp3 - Leadership Thank You Letter sp3 Signatures: Dispatcher [employer] EDMS Zoe Dockery RN RN ap3 Natalie Nuñez MD MD sp3 Corrections: (The following items were deleted from the chart) 10:50 10:50 Influenza Screen (A \\T\\ B)+BA.LAB.BRZ ordered. EDMS EDMS 10:50 10:50 Group A Streptococcus Rapid Sc+BA.LAB.BRZ ordered. EDMS EDMS 11:00 11:00 BASIC METABOLIC PANEL+C.LAB.BRZ ordered. EDMS EDMS 11:00 11:00 CBC+H.LAB.BRZ ordered. EDMS EDMS 11:00 11:00 HEPATIC FUNCTION+C.LAB.BRZ ordered. EDMS EDMS 11:00 11:00 MAGNESIUM+C.LAB.BRZ ordered. EDMS EDMS 11:00 11:00 PROBNP+C.LAB.BRZ ordered. EDMS EDMS 11:00 11:00 Troponin High Sensitivity+C.LAB.BRZ ordered. EDMS EDMS 11:28 10:50 SARS-COV-2 Antigen Rapid+I.LAB.BRZ ordered. EDMS EDMS
[2023-11-04 14:32] VITALS: BP 194/67; TEMP 97.8; O2SAT 96
== END 2023-11-04 13:50 | disposition home or self-care (01) ==
LOC: ER 10:18
DX: B34.9 Viral infection, unspecified (principal); Z11.52 Encounter for screening for COVID-19
CPT/HCPCS: 36415; 71045; 80048; 80076; 83735; 83880; 84484; 85025; 87070; 87081; 87635; 87804; 93005

== ENCOUNTER 2024-08-06 15:24 | Emergency (ER) | payer OTHER, MEDICARE ==
--- NOTE | 2024-08-06 16:21 | RAD REPORT ---
EXAM: Hand Left 3 View HISTORY: PAIN COMPARISON: None FINDINGS: Bones: Fracture at the proximal aspect of the fifth middle phalanx with intra-articular extension and slight angulation and comminution. Degenerative changes:None significant. Other: n/a IMPRESSION: Mildly comminuted and angulated fracture involving the fifth middle phalanx with extension to and aline e disruption of the articular surface at the PIP joint.
--- NOTE | 2024-08-06 17:02 | EDPHYS ---
Physician Documentation [facility] Name: Cara Lim Age: 83 yrs Sex: Female : 1940 Arrival Date: 08/06/2024 Time: 15:24 Bed 12 Private MD: ED Physician Aj Pena HPI: 08/06 16:00 This 83 yrs old Female presents to ER via Ambulatory with complaints of Fall Injury, cp Finger Injury. 16:00 Details of fall: The patient fell from an upright position, while walking. Onset: The cp symptoms/episode began/occurred today. Associated injuries: The patient sustained left small finger, decreased range of motion, ecchymosis, painful injury, swelling. 16:00 Severity of symptoms: in the emergency department the symptoms are unchanged, despite cp home interventions. Historical: - Allergies: 15:58 No Known Allergies; jl7 - PMHx: 15:58 Hypertensive disorder; Hypothyroidism; jl7 - Immunization history: Last tetanus immunization: unknown. - Infectious Disease History:: Denies. - Social history:: Smoking status: Patient denies any tobacco usage or history of. ROS: 16:05 Constitutional: Negative for body aches, chills, fever, poor PO intake, cp 16:05 Eyes: Negative for injury, pain, redness, and discharge, cp 16:05 Neck: Negative for pain with movement, pain at rest, stiffness, 16:05 Cardiovascular: Negative for chest pain, edema, palpitations, 16:05 Respiratory: Negative for cough, shortness of breath, wheezing, 16:05 Abdomen/GI: Negative for abdominal pain, nausea, vomiting, and diarrhea, 16:05 Back: Negative for pain at rest, pain with movement, 16:05 MS/extremity: Positive for injury or acute deformity, ecchymosis, pain, swelling, tenderness, of the left fifth finger, 16:05 Neuro: Negative for altered mental status, loss of consciousness, syncope, near syncope, weakness, 16:05 All other systems are negative, cp Exam: 16:10 Constitutional: The patient appears in no acute distress, alert, awake, comfortable, cp non-toxic, well developed, well nourished, 16:10 Head/Face: Normocephalic, atraumatic. cp 16:10 Neck: ROM/movement: is normal, is supple, without pain, no range of motions limitations, 16:10 Chest/axilla: Inspection: normal, Palpation: crepitus, is not appreciated, tenderness, is not appreciated, 16:10 Cardiovascular: Rate: normal, 16:10 Respiratory: the patient does not display signs of respiratory distress, Respirations: normal, no use of accessory muscles, no retractions, labored breathing, is not present, Breath sounds: are clear throughout, no decreased breath sounds, no stridor, no wheezing, 16:10 Abdomen/GI: Inspection: abdomen appears normal, Palpation: abdomen is soft and non-tender, in all quadrants, 16:10 Back: pain, is absent, ROM is normal, vertebral tenderness, is not appreciated, 16:10 Musculoskeletal/extremity: Extremities: noted in the left little finger: decreased ROM, ecchymosis, pain, swelling, tenderness, ROM: limited passive range of motion due to pain, in the left little finger, Perfusion: the extremity is normally perfused throughout, the left hand Sensation intact. 16:10 Neuro: Orientation: to person, place \T\ time. Mentation: is normal, Vital Signs: 15:56 BP 192 / 65; Pulse 84; Resp 17; Temp 97.8; Pulse Ox 95% ; Weight 57.61 kg; Height 5 ft. jl7 6 in. ; 17:15 BP 175 / 65; Pulse 70; Resp 15; Pulse Ox 95% ; jl7 15:56 Body Mass Index 20.50 (57.61 kg, 167.64 cm) jl7 Procedures: 17:05 Splinting: Splint applied to left hand using Orthoglass splint, ulna gutter type. cp applied by tech. Examined by me, post splint application: neurovascular intact, Patient tolerated well. MDM: 15:46 Medical Screening Exam initiated cp 16:00 Differential diagnosis: contusion, fracture, laceration, multiple trauma. cp 17:01 Data reviewed: vital signs, nurses notes, radiologic studies, plain films, and as a cp result, I will discharge patient. 08/06 15:53 Order name: XRAY Hand LEFT 3 View; Complete Time: 17:21 cp 08/06 17:21 Interpretation: Report reviewed. cp 08/06 15:53 Order name: Ice pack; Complete Time: 17:04 cp 08/06 16:42 Order name: Ulnar Gutter splint; Complete Time: 17:04 cp Administered Medications: No medications were administered Disposition Summary: 08/06/24 17:01 Discharge Ordered Notes: Location: Home cp Problem: new cp Symptoms: have improved cp Condition: Stable cp Diagnosis - Hypertensive heart disease without heart failure cp - Displaced fracture of medial phalanx of left little finger, initial encounter for cp closed fracture Followup: cp - With: Private Physician - When: 1 week - Reason: hand surgeon Discharge Instructions: - Discharge Summary Sheet cp - Finger Fracture, Adult cp - Hypertension, Adult cp - Form - Blood Pressure Record Sheet cp - How to Take Your Blood Pressure cp Forms: - Medication Reconciliation Form cp - Antibiotic Education cp - Prescription Opioid Use cp - Patient Portal Instructions cp - Leadership Thank You Letter cp Addendum: 08/09/2024 10:24 Co-signature as Attending Physician, Aj Pena MD I reviewed the patient's care r n provided by the Advanced Practice Provider and agree with the diagnosis and treatment plan. Signatures: Dispatcher [employer] Aj Schultz MD MD rn Abram Ortega PA PA Cesilia Casey RN RN jl7
--- NOTE | 2024-08-06 17:02 | ER ---
Nurse's Notes [facility] Name: Cara Lim Age: 83 yrs Sex: Female : 1940 Arrival Date: 08/06/2024 Time: 15:24 Bed 12 Private MD: Diagnosis: Hypertensive heart disease without heart failure;Displaced fracture of medial phalanx of left little finger, initial encounter for closed fracture Presentation: 08/06 15:52 Chief complaint: Patient states: Mechanical fall at 1230 today, reports pain to left jl7 pinky. Care prior to arrival: None. Mechanism of Injury: Fall from standing position. Trauma event details: Injury occurred in the [facility]. 15:52 Acuity: PRINCESS 4 jl7 15:52 Method Of Arrival: Ambulatory jl7 15:56 Coronavirus screen: At this time, the client does not indicate any symptoms associated jl7 with coronavirus-19. Ebola Screen: No symptoms or risks identified at this time. Initial Sepsis Screen: Does the patient meet any 2 criteria? No. Patient's initial sepsis screen is negative. Does the patient have a suspected source of infection? No. Patient's initial sepsis screen is negative. Risk Assessment: Do you want to hurt yourself or someone else? Patient reports no desire to harm self or others. Onset of symptoms was August 06, 2024 at 12:30. Trauma Activation: Not Applicable Physician: ED Physician; Name: ; Notified At: ; Arrived At: Physician: General Surgeon; Name: ; Notified At: ; Arrived At: Physician: Radiology; Name: ; Notified At: ; Arrived At: Physician: Respiratory; Name: ; Notified At: ; Arrived At: Physician: Lab; Name: ; Notified At: ; Arrived At: Historical: - Allergies: 15:58 No Known Allergies; jl7 - PMHx: 15:58 Hypertensive disorder; Hypothyroidism; jl7 - Immunization history: Last tetanus immunization: unknown. - Infectious Disease History:: Denies. - Social history:: Smoking status: Patient denies any tobacco usage or history of. Screenin:31 [facility] ED Fall Risk Assessment (Adult) History of falling in the last 3 months, jl7 including since admission Yes- single mechanical fall (1 pt) Confusion or Disorientation No (0 pts) Intoxicated or Sedated No (0 pts) Impaired Gait Yes (1 pt) Mobility Assist Device Used Yes (1 pt) Altered Elimination No (0 pt) Score/Fall Risk Level 3 or more points = High Risk Oriented to surroundings, Maintained a safe environment. Abuse screen: Denies threats or abuse. Denies injuries from another. Nutritional screening: No deficits noted. Tuberculosis screening: No symptoms or risk factors identified. Primary Survey: 15:52 NO uncontrolled hemorrhage observed. A: The client is awake and alert. The airway is jl7 patent. Breathing/Chest: Spontaneous respiratory effort, equal unlabored respirations, breath sounds clear bilaterally, regular pattern, symmetrical chest rise and fall. Circulation: No external hemorrhage present. Regular and strong central pulse, skin warm/dry/normal color. Disability Client is alert. Exposure/Environment: There is no evidence of uncontrolled external bleeding. Obvious injury(ies) are noted at this time: left pinky. Assessment: 15:52 General: Appears in no apparent distress. uncomfortable, Behavior is calm, cooperative, jl7 appropriate for age. Pain: Complains of pain in left little finger. Neuro: Vang Agitation-Sedation Scale (RASS): 0 - Alert and Calm Level of Consciousness is awake, alert, obeys commands, Oriented to person, place, time, situation. Derm: Bruising that is on left little finger. Musculoskeletal: Swelling present in left little finger. Vital Signs: 15:56 BP 192 / 65; Pulse 84; Resp 17; Temp 97.8; Pulse Ox 95% ; Weight 57.61 kg; Height 5 ft. jl7 6 in. ; 17:15 BP 175 / 65; Pulse 70; Resp 15; Pulse Ox 95% ; jl7 15:56 Body Mass Index 20.50 (57.61 kg, 167.64 cm) jl7 ED Course: 15:27 Patient arrived in ED. mr 15:37 Abram Ortega PA is PHCP. cp 15:37 Aj Pena MD is Attending Physician. cp 15:54 Triage completed. jl7 15:58 Arm band placed on right wrist. jl7 16:00 Provided Education on: use of call [place]. jl7 16:00 Patient has correct armband on for positive identification. jl7 16:00 No provider procedures requiring assistance completed. Patient did not have IV access jl7 during this emergency room visit. 16:06 XRAY Hand LEFT 3 View In Process Unspecified. EDMS 16:07 Cortés, Jahala, RN is Primary Nurse. jl7 Administered Medications: No medications were administered Medication: 17:31 VIS not applicable for this client. jl7 Outcome: 17:01 Discharge ordered by . gregory 17:15 Discharged to home ambulatory, with family, don 17:15 Condition: stable 17:15 Discharge instructions given to patient, family, Instructed on discharge instructions, follow up and referral plans. splint care Demonstrated understanding of instructions, follow-up care, splint care, 17:33 Patient left the ED. jl7 Signatures: Dispatcher [employer] EDSD Laurie Padilla, Reg Reg mr Abram Ortega, PA PA Cesilia Casey, RN RN jlCarol
[2024-08-06 18:02] VITALS: TEMP 97.8; O2SAT 95
[2024-08-06 18:03] VITALS: BP 175/65
== END 2024-08-06 17:33 | disposition home or self-care (01) ==
LOC: ER 15:24
PROC: 2W3KX1Z Immobilization of Left Finger using Splint (ICD-10-PCS; principal; 2024-08-06)
DX: S62.627A Displaced fracture of middle phalanx of left little finger, initial encounter for closed fracture (principal); I11.9 Hypertensive heart disease without heart failure; W18.30XA Fall on same level, unspecified, initial encounter
CPT/HCPCS: 99283